=== PATIENT | male | born 1930 | race Caucasian/White ===

== ENCOUNTER 2018-02-22 18:42 | Inpatient (IN) | payer MEDICARE, OTHER ==
[~2018-02-22] VITALS: Ht 167.6 cm; Wt 73.5 kg
[2018-02-22] MEDS ORDERED: MAGNESIUM HYDROXIDE 2,400 MG/30 ML ORAL.SUSP. PO PRN (21:00)
[2018-02-22] MEDS ORDERED: MAG HYDROX/AL HYDROX/SIMETH 30 ML ORAL.SUSP PO PRN (21:00)
[2018-02-22] MEDS ORDERED: METHYL SALICYLATE/MENTHOL TOPICAL OINTMENT 29GM TUBE. TP PRN (21:00)
[2018-02-22] MEDS ORDERED: DONE10TA61 PO (21:06)
[2018-02-22 21:31] LABS: BILIRUBIN,URINE NEG (NEG); CLARITY,URINE CLEAR; COLOR,URINE YELLOW; GLUCOSE,URINE NEG (NEG)
[2018-02-22 21:32] LABS: BACTERIA,URINE 0 /HPF (0-FEW); NITRITE,URINE NEG (NEG); SQUAMOUS EPITHELIAL CELL,UR OCC /LPF; UROBILINOGEN,URINE 0.2 mg/dL (0.2 mg/dL); WBC,URINE RARE /HPF (0-4)
[2018-02-22 21:44] LABS: BASO % 1 % (0-3); EOS # 0.2 x10^3/uL (0.0-0.7); EOS % 4 % (0-3); HEMATOCRIT 40.1 % (39.0-53.0); HEMOGLOBIN 13.5 g/dL (13.0-17.5); LYMPH # 1.6 x10^3/uL (1.0-4.8); LYMPH % 24 % (24-48); MEAN CORPUSCULAR HEMOGLOBIN 31 pg (25-35); MEAN CORPUSCULAR HGB CONC 34 g/dL (31-37); MEAN CORPUSCULAR VOLUME 91 fL (79-100); MONO # 0.7 x10^3/uL (0.0-1.1); MONO % 11 % (0-9); NEUT % 61 % (31-73); PLATELET COUNT 254 x10^3/uL (140-400); RED BLOOD COUNT 4.39 x10^6/uL (4.30-5.70); RED CELL DISTRIBUTION WIDTH 14.2 % (11.5-14.5); WHITE BLOOD COUNT 6.5 x10^3/uL (4.0-11.0)
[2018-02-22 21:57] LABS: ALBUMIN 3.7 g/dL (3.4-5.0); ALBUMIN/GLOBULIN RATIO 0.9 (1.0-1.7); CALCIUM 8.9 mg/dL (8.5-10.1); CREATININE 0.9 mg/dL (0.7-1.3); GFR 79.6; MAGNESIUM 2.2 mg/dL (1.8-2.4); POTASSIUM 3.9 mmol/L (3.5-5.1); TOTAL BILIRUBIN 0.6 mg/dL (0.2-1.0); TOTAL PROTEIN 7.7 g/dL (6.4-8.2)
--- NOTE | 2018-02-22 22:23 | PDOC ---
Exam Note: Willie Note: Please also refer to the separate dictated note~for this date of service dictated separately.~Patient seen individually. Discussed the patient with Nursing staff reviewed the chart.~Reviewed interim history and current functioning. Reviewed vital signs,~Labs/ Radiology~and current medications noted below. Continue current treatment with the changes noted in the dictated addendum note Assessment: Labs: Laboratory Tests Test 02/22/18 21:00 02/22/18 21:35 Urine Collection Type Unknown Urine Color Yellow Urine Clarity Clear Urine pH 5.5 Urine Specific [place] 1.015 Urine Protein Neg (NEG-TRACE) Urine Glucose (UA) Neg mg/dL (NEG) Urine Ketones (Stick) Neg mg/dL (NEG) Urine Blood Trace (NEG) Urine Nitrite Neg (NEG) Urine Bilirubin Neg (NEG) Urine Urobilinogen Dipstick 0.2 mg/dL (0.2 mg/dL) Urine Leukocyte Esterase Neg (NEG) Urine RBC 1-2 /HPF (0-2) Urine WBC Rare /HPF (0-4) Urine Squamous Epithelial Cells Occ /LPF Urine Bacteria 0 /HPF (0-FEW) White Blood Count 6.5 x10^3/uL (4.0-11.0) Red Blood Count 4.39 x10^6/uL (4.30-5.70) Hemoglobin 13.5 g/dL (13.0-17.5) Hematocrit 40.1 % (39.0-53.0) Mean Corpuscular Volume 91 fL (79-100) Mean Corpuscular Hemoglobin 31 pg (25-35) Mean Corpuscular Hemoglobin Concent 34 g/dL (31-37) Red Cell Distribution Width 14.2 % (11.5-14.5) Platelet Count 254 x10^3/uL (140-400) Neutrophils (%) (Auto) 61 % (31-73) Lymphocytes (%) (Auto) 24 % (24-48) Monocytes (%) (Auto) 11 % (0-9) H Eosinophils (%) (Auto) 4 % (0-3) H Basophils (%) (Auto) 1 % (0-3) Neutrophils # (Auto) 4.0 x10^3uL (1.8-7.7) Lymphocytes # (Auto) 1.6 x10^3/uL (1.0-4.8) Monocytes # (Auto) 0.7 x10^3/uL (0.0-1.1) Eosinophils # (Auto) 0.2 x10^3/uL (0.0-0.7) Basophils # (Auto) 0.0 x10^3/uL (0.0-0.2) Sodium Level 132 mmol/L (136-145) L Potassium Level 3.9 mmol/L (3.5-5.1) Chloride Level 98 mmol/L (98-107) Carbon Dioxide Level 25 mmol/L (21-32) Anion Gap 9 (6-14) Blood Urea Nitrogen 19 mg/dL (8-26) Creatinine 0.9 mg/dL (0.7-1.3) Estimated GFR (Cockcroft-Gault) 79.6 BUN/Creatinine Ratio 21 (6-20) H Glucose Level 97 mg/dL (70-99) Calcium Level 8.9 mg/dL (8.5-10.1) Magnesium Level 2.2 mg/dL (1.8-2.4) Total Bilirubin 0.6 mg/dL (0.2-1.0) Aspartate Amino Transferase (AST) 18 U/L (15-37) Alanine Aminotransferase (ALT) 19 U/L (16-63) Alkaline Phosphatase 63 U/L (46-116) Total Protein 7.7 g/dL (6.4-8.2) Albumin 3.7 g/dL (3.4-5.0) Albumin/Globulin Ratio 0.9 (1.0-1.7) L Current Medications: Meds: Current Medications Acetaminophen (Tylenol) 650 mg PRN Q6HRS PRN PO PAIN / TEMP; Start 02/22/18 at 21:00 Multi-Ingredient Ointment (Analgesic [place]) 1 vilma PRN QID PRN TP MUSCLE PAIN; Start 02/22/18 at 21:00 Al Hydroxide/Mg Hydroxide (Mylanta Plus Xs) 15 ml PRN AFTMEALHC PRN PO DYSPEPSIA; Start 02/22/18 at 21:00 Magnesium Hydroxide (Milk Of Magnesia) 2,400 mg PRN QHS PRN PO CONSTIPATION; Start 02/22/18 at 21:00 Donepezil HCl (Aricept) 10 mg QHS PO ; Start 02/22/18 at 22:30 Active Scripts Active Reported Aricept (Donepezil Hcl) 10 Mg Tablet 10 Mg PO HS I have reviewed the current psychotropics carefully including drug interactions. Risk benefit ratio favors no change other than as noted in my dictated progress note. RUCHI WHITT MD Feb 22, 2018 22:23
[2018-02-22] MEDS: DONEPEZIL HCL 10 MG TABLET PO SCH (22:28)
[2018-02-22] MEDS: ACETAMINOPHEN 325 MG TABLET PO PRN (23:46)
[2018-02-23 01:56] VITALS: BP 149/84
[2018-02-23 06:26] VITALS: BP 132/71
[2018-02-23 10:52] LABS: THYROID STIM HORMONE (TSH) 4.186 uIU/mL (0.358-3.740)
--- NOTE | 2018-02-23 11:46 | RAD ---
CT scan of the head without contrast 02/22/2018 Clinical History: Mental status changes. Technique: Unenhanced, contiguous, 5 mm axial sections were obtained through the head. One or more of the following individualized dose reduction techniques were utilized for this study: 1. Automated exposure control. 2. Adjustment of the mA and/or kV according to patient size. 3. Use of iterative reconstruction technique. Findings: No previous imaging studies are available for comparison. There is generalized parenchymal atrophy. Areas of decreased attenuation are seen within the periventricular and subcortical white matter of both cerebral hemispheres consistent with areas of small vessel ischemic disease. No acute parenchymal abnormality is seen. No extra-axial fluid collection is noted. No skull fracture is seen. Mild to moderate mucosal thickening in seen scattered throughout the ethmoid air cells. Impression: No acute intracranial abnormality is seen. Electronically signed by: Cristopher Hancock MD (02/23/2018 11:42 AM) [facility]
[2018-02-23 15:08] LABS: HEMOGLOBIN A1C 5.6 % (4.8-5.6); THYROXINE 6.6 ug/dL (4.5-12.0)
[2018-02-23] MEDS: CHOLECALCIFEROL (VITAMIN D3) 50,000 UNIT CAPSULE PO SCH ×2 (15:30→17:32)
[2018-02-23 16:06] VITALS: BP 130/82
[2018-02-23] MEDS: DONEPEZIL HCL 10 MG TABLET PO SCH (20:10)
[2018-02-23] MEDS: traZODone 50 MG TABLET. PO SCH (20:22)
[2018-02-23] MEDS ORDERED: traZODone 50 MG TABLET. PO PRN (20:30)
--- NOTE | 2018-02-23 20:40 | HP ---
ADMIT DATE: 02/23/2018 PSYCHIATRIC ADMISSION HISTORY/EVALUATION This note covers elements not covered in my initial note 02/23/2018. IDENTIFYING DATA: The patient is an 87-year-old male from [facility] in [place], [place] after the police were called to his home and the patient was brought to the hospital on account of increasing confusion. Reportedly, the patient had bought a new house, but forgot he done this, became agitated when the movers came. He was accusing people of taking advantage of him. He has had a fairly traumatic incident in October of this year when he lost his son and he has been more depressed, delusional, confused and agitated since then, but the recent move has markedly exacerbated this. He has also been going for walks and getting lost. Behaviors have been deemed unmanageable, dangerous in the home. He was brought to the Emergency Room, evaluated, and then referred for inpatient psychiatric stabilization. CHIEF COMPLAINT: "Where is the elevator. I need to go to the tenth floor." The patient was anxious, restless, walking up and down the hallway and I followed him around trying to help him settle down with some limited response. HISTORY OF PRESENT ILLNESS: The patient has a history of dementia, Alzheimer's vascular type. He has been living at home with his and family, bought a new home, which worsened his confusion, paranoia. He has had sleep and appetite changes. No active suicidal or homicidal ideation other than the above marked disruptive behavior secondary to paranoia, confusion. No history of bipolar disorder. The patient had also been increasingly agitated at home, verbally aggressive with the and family. PAST PSYCHIATRIC HISTORY: As above. MEDICAL HISTORY: Vitamin D deficiency. ALLERGIES: PENICILLIN, SULFA. CODE STATUS: He is a full code. FAMILY HISTORY: Noncontributory. SOCIAL HISTORY: No history of alcohol, drug abuse, physical, sexual or elder abuse. He is not known to be a perpetrator. REACTION TO HOSPITALIZATION: The patient oblivious of this. ASSETS: Supportive family. REVIEW OF SYSTEMS: No CV, , pulmonary, eye, ENT system symptoms on review. Reliability poor. MENTAL STATUS EXAMINATION: Oriented to himself. Insight, judgment, recent and remote memory, attention, concentration, fund of knowledge poor, consistent with his diagnosis. IMPRESSION: Major neurocognitive disorder, Alzheimer, vascular with depression, delusion, behavioral disturbance; anxiety disorder, unspecified; impulse control disorder, unspecified. Rest as above. PLAN: Admit to Geropsychiatry Unit at [facility]. I will see the patient daily individually from a psychiatric standpoint, medical followup per Dr. Burr/Dr Plascencia. Continue the patient on his current psychotropics. We may add Zyprexa 2.5 mg q.2 hours p.r.n. psychosis, agitation. Make further changes as clinically indicated and I will see him daily individually from a psychiatric standpoint. MAN Magy WHITT MD DR: SHREYA/selina JOB#: [id number] / [id number]
--- NOTE | 2018-02-23 22:26 | PDOC ---
Exam Note: Willie Note: Please also refer to the separate dictated note~for this date of service dictated separately.~Patient seen individually. Discussed the patient with Nursing staff reviewed the chart.~Reviewed interim history and current functioning. Reviewed vital signs,~Labs/ Radiology~and current medications noted below. Continue current treatment with the changes noted in the dictated addendum note Assessment: Vital Signs: Vital Signs Date Time Temp Pulse Resp B/P (MAP) Pulse Ox O2 Delivery O2 Flow Rate FiO2 02/23/18 16:06 97.6 72 20 130/82 (98) 98 Room Air I&O Intake and Output 02/23/18 07:01 Intake Total 120 ml Balance 120 ml Intake Oral 120 ml Current Medications: Meds: Current Medications Acetaminophen (Tylenol) 650 mg PRN Q6HRS PRN PO PAIN / TEMP Last administered on 02/22/18at 23:46; Start 02/22/18 at 21:00 Multi-Ingredient Ointment (Analgesic [place]) 1 vilma PRN QID PRN TP MUSCLE PAIN; Start 02/22/18 at 21:00 Al Hydroxide/Mg Hydroxide (Mylanta Plus Xs) 15 ml PRN AFTMEALHC PRN PO DYSPEPSIA; Start 02/22/18 at 21:00 Magnesium Hydroxide (Milk Of Magnesia) 2,400 mg PRN QHS PRN PO CONSTIPATION; Start 02/22/18 at 21:00 Donepezil HCl (Aricept) 10 mg QHS PO Last administered on 02/23/18at 20:10; Start 02/22/18 at 22:30 Vitamin D (Vitamin D3) 50,000 unit WEEKLY PO Last administered on 02/23/18at 17: 32; Start 02/23/18 at 15:30 Olanzapine (ZyPREXA ZYDIS) 2.5 mg PRN Q2HR PRN PO PSYCHOSIS Last administered on 02/23/18at 20:22; Start 02/23/18 at 20:30 Trazodone HCl (Desyrel) 50 mg QHS PO Last administered on 02/23/18at 20:22; Start 02/23/18 at 21:00 Trazodone HCl (Desyrel) 50 mg PRN QHS PRN PO IF REPEAT DOSE NEEDED; Start 02/23 at 20:30 Active Scripts Active Reported Aricept (Donepezil Hcl) 10 Mg Tablet 10 Mg PO HS I have reviewed the current psychotropics carefully including drug interactions. Risk benefit ratio favors no change other than as noted in my dictated progress note. Diagnosis: Problems: (1) Anxiety disorder (2) Dementia in Alzheimer's disease with delusions (3) Dementia in Alzheimer's disease with depression (4) Dementia, vascular, with delusions (5) Dementia, vascular, with depression (6) Impulse control disorder RUCHI WHITT MD Feb 23, 2018 22:25
[2018-02-24 06:02] VITALS: BP 109/62
--- NOTE | 2018-02-24 12:15 | CONS ---
DATE OF CONSULTATION: 02/23/2018 REASON FOR CONSULTATION: Medical management. HISTORY OF PRESENT ILLNESS: The patient is an 87-year-old male patient, who was admitted to this unit on account of increased agitation at home, verbally aggressive with and family. The patient and his both at new home, but when the movers came the patient became extremely agitated, does not remember buying a new home and refused to get the movers take any belongings. The police had to be called in. The patient was evaluated in the Emergency Room of [facility] with increasing confusion. He goes out on walks and gets lost, all this in a background of major neurocognitive disorder. PAST PSYCHIATRIC HISTORY: Significant for dementia, major neurocognitive disorder and behavioral disorder. PAST MEDICAL HISTORY: Unremarkable. PAST SURGICAL HISTORY: Unobtainable. FAMILY HISTORY: Unobtainable. SOCIAL HISTORY: He lives with his . Apparently, he does not smoke, drink alcohol or use recreational drugs. He said he quit smoking about 20 years ago, used to work in the railroad. ALLERGIES: He is allergic to PENICILLIN and SULFA DRUGS. MEDICATIONS: He is currently on Aricept 10 mg at bedtime. REVIEW OF SYSTEMS: As per history of present illness. PHYSICAL EXAMINATION GENERAL: When I examined him, the patient was walking without assistance or assistive devices. There was no pallor, jaundice or cyanosis. No lymphadenopathy, no thyromegaly. No jugular venous distention. No limb edema. VITAL SIGNS: His heart rate was 60, blood pressure was 132/71, temperature was 97.9, respiratory rate 20, and oxygen saturation was 98% on room air. HEAD, EYES, EARS, NOSE AND THROAT: Showed normocephalic, atraumatic. NECK: Supple. HEART: Showed normal first and second heart sounds. No gallop, rub or murmur. CHEST: Clear to auscultation. No crepitation or rhonchi. ABDOMEN: Distended, soft, nontender. No guarding or rigidity. No organomegaly. All hernial orifice intact. Bowel sounds normal. NEUROLOGIC: He was awake, alert, responding. At times he seemed to be very confused. All his cranial nerves are intact. EXTREMITIES: He moves extremities without difficulty, ambulates without assistance or assistive devices. LABORATORY DATA: Showed a white cell count of 6500, hemoglobin 13.5, hematocrit 40, MCV 91, and platelet count 254,000 with normal manual differential. His chemistry showed serum sodium of 132, potassium 3.9, chloride 98, bicarbonate 25, anion gap of 9, BUN 19, creatinine 0.9, estimated GFR was 79 mL per minute, glucose 97, calcium was 8.9, magnesium was 2.2. Total bilirubin, AST, ALT, alkaline phosphatase were normal. Total protein was 7.7, albumin was 3.7. His urinalysis showed the urine was yellow, clear with a pH of 5.5, specific gravity of 1.015. The urine was negative for protein, glucose, ketones. There was a trace of blood, negative for nitrites, bilirubin and leukocyte esterase. There is 1-2 rbc's, 0 wbc, and no bacteria. His troponin with pallidum antibody was nonreactive. His CT scan of the head showed that there is generalized parenchymal atrophy, areas of decreased attenuation are seen within the periventricular and subcortical white matter of both cerebral hemispheres consistent with areas of small vessel ischemic disease, no acute parenchymal abnormalities are seen. No extraaxial fluid collection is noted. No skull fracture is seen. Mild to moderate mucosal thickening is seen. Scattered throughout the ethmoid air cells. His hemoglobin A1c was 5.6. Serum iron was 650, TIBC was 300 and percent saturation was 17, triglycerides were 84%, total cholesterol was 237, LDL was 55, VLDL was 15, non-HDL was 171, HDL cholesterol was 66 and ratio was 3. His vitamin B12 was 279 pg/mL. His 25-hydroxy vitamin D3 was 24.4 and TSH slightly elevated; however, his total T4 and total T3 were normal. IMPRESSION: In summary, this is an 87-year-old male patient, who was admitted on the account of increased agitation at home, verbally aggressive with and family. He and his both at new home, but when movers came in he became very agitated, did not remember why getting home and refused to movers take any belonging. The police has to be called in and he was taken to the Emergency Room and was evaluated at the [facility]. All this in the background of major neurocognitive disorder, here for inpatient psychiatric stabilization. Medically, he has vitamin D deficiency, borderline elevated TSH. He has compensated hypothyroidism. However, his total T4 and total T3 were normal. He has also low to borderline vitamin B12 deficiency. PLAN: My plan is to replenish his vitamin D for now and he probably needs to be followed closely and he might eventually require vitamin B12 supplementation. Thank you, Dr. Burkett for allowing me to participate in the care of this patient. JEAN MARIE RAY MD DR: ERICK/selina JOB#: [id number] / [id number]
[2018-02-24 15:44] VITALS: BP 118/64
[2018-02-24] MEDS: DONEPEZIL HCL 10 MG TABLET PO SCH (19:50)
[2018-02-24] MEDS: traZODone 50 MG TABLET. PO SCH (19:50)
--- NOTE | 2018-02-24 20:57 | PDOC ---
Exam Note: Willie Note: Please also refer to the separate dictated note~for this date of service dictated separately.~Patient seen individually. Discussed the patient with Nursing staff reviewed the chart.~Reviewed interim history and current functioning. Reviewed vital signs,~Labs/ Radiology~and current medications noted below. Continue current treatment with the changes noted in the dictated addendum note Assessment: Vital Signs: Vital Signs Date Time Temp Pulse Resp B/P (MAP) Pulse Ox O2 Delivery O2 Flow Rate FiO2 02/24/18 15:44 97.7 60 17 118/64 (82) 95 02/23/18 16:06 Room Air I&O Intake and Output 02/24/18 07:01 Intake Total 485 ml Balance 485 ml Intake Oral 485 ml Current Medications: Meds: Current Medications Acetaminophen (Tylenol) 650 mg PRN Q6HRS PRN PO PAIN / TEMP Last administered on 02/22/18at 23:46; Start 02/22/18 at 21:00 Multi-Ingredient Ointment (Analgesic [place]) 1 vilma PRN QID PRN TP MUSCLE PAIN; Start 02/22/18 at 21:00 Al Hydroxide/Mg Hydroxide (Mylanta Plus Xs) 15 ml PRN AFTMEALHC PRN PO DYSPEPSIA; Start 02/22/18 at 21:00 Magnesium Hydroxide (Milk Of Magnesia) 2,400 mg PRN QHS PRN PO CONSTIPATION; Start 02/22/18 at 21:00 Donepezil HCl (Aricept) 10 mg QHS PO Last administered on 02/24/18at 19:50; Start 02/22/18 at 22:30 Vitamin D (Vitamin D3) 50,000 unit WEEKLY PO Last administered on 02/23/18at 17: 32; Start 02/23/18 at 15:30 Olanzapine (ZyPREXA ZYDIS) 2.5 mg PRN Q2HR PRN PO PSYCHOSIS Last administered on 02/24/18 19:51; Start 02/23/18 at 20:30 Trazodone HCl (Desyrel) 50 mg QHS PO Last administered on 02/24/18at 19:50; Start 02/23/18 at 21:00 Trazodone HCl (Desyrel) 50 mg PRN QHS PRN PO IF REPEAT DOSE NEEDED Last administered on 02/23/18at 22:47; Start 02/23/18 at 20:30 Active Scripts Active Reported Aricept (Donepezil Hcl) 10 Mg Tablet 10 Mg PO HS I have reviewed the current psychotropics carefully including drug interactions. Risk benefit ratio favors no change other than as noted in my dictated progress note. Diagnosis: Problems: (1) Anxiety disorder (2) Dementia in Alzheimer's disease with delusions (3) Dementia in Alzheimer's disease with depression (4) Dementia, vascular, with delusions (5) Dementia, vascular, with depression (6) Impulse control disorder RUCHI WHITT MD Feb 24, 2018 20:57
[2018-02-25 06:19] VITALS: BP 124/74
--- NOTE | 2018-02-25 12:20 | PN ---
DATE: 02/24/2018 PSYCHIATRIC PROGRESS NOTE This is a late entry, date of service 02/24/2018, covers elements not covered in my initial note. SUBJECTIVE: I met with the patient the evening of 02/24/2018. The patient remains quite confused, disorganized, but during the day on 02/24/2018 he is little less agitated. He is compliant with his medications. REVIEW OF SYSTEMS: No CV, , pulmonary, eye, ENT system symptoms on review, remains somewhat withdrawn. MENTAL STATUS EXAM: Oriented to himself. Insight, judgment, recent and remote memory, attention, concentration, fund of knowledge poor, consistent with his diagnoses. Speech, low in rate and rhythm, low in volume. Eye contact is poor. LABORATORY DATA: Reviewed. IMPRESSION: Major neurocognitive disorder, Alzheimer, vascular with delusion, depression, behavioral disturbance. Rest unchanged. PLAN: Continue psychotropics from my initial note. These include Aricept, Zyprexa p.r.n., trazodone p.r.n. and we will consider adding Zoloft as an antidepressant antianxiety agent. RUCHI WHITT MD DR: SHREYA/selina JOB#: [id number] / [id number]
[2018-02-25 16:14] VITALS: BP 124/76
[2018-02-25] MEDS: DONEPEZIL HCL 10 MG TABLET PO SCH (19:45)
[2018-02-25] MEDS: traZODone 50 MG TABLET. PO SCH (19:45)
--- NOTE | 2018-02-25 20:58 | PDOC ---
Exam Note: Willie Note: Please also refer to the separate dictated note~for this date of service dictated separately.~Patient seen individually. Discussed the patient with Nursing staff reviewed the chart.~Reviewed interim history and current functioning. Reviewed vital signs,~Labs/ Radiology~and current medications noted below. Continue current treatment with the changes noted in the dictated addendum note Assessment: Vital Signs: Vital Signs Date Time Temp Pulse Resp B/P (MAP) Pulse Ox O2 Delivery O2 Flow Rate FiO2 02/25/18 16:14 97.4 74 20 124/76 (92) 96 Room Air I&O Intake and Output 02/25/18 07:01 Intake Total 1320 ml Balance 1320 ml Intake Oral 1320 ml Current Medications: Meds: Current Medications Acetaminophen (Tylenol) 650 mg PRN Q6HRS PRN PO PAIN / TEMP Last administered on 02/22/18at 23:46; Start 02/22/18 at 21:00 Multi-Ingredient Ointment (Analgesic [place]) 1 vilma PRN QID PRN TP MUSCLE PAIN; Start 02/22/18 at 21:00 Al Hydroxide/Mg Hydroxide (Mylanta Plus Xs) 15 ml PRN AFTMEALHC PRN PO DYSPEPSIA; Start 02/22/18 at 21:00 Magnesium Hydroxide (Milk Of Magnesia) 2,400 mg PRN QHS PRN PO CONSTIPATION; Start 02/22/18 at 21:00 Donepezil HCl (Aricept) 10 mg QHS PO Last administered on 02/25/18at 19:45; Start 02/22/18 at 22:30 Vitamin D (Vitamin D3) 50,000 unit WEEKLY PO Last administered on 02/23/18at 17: 32; Start 02/23/18 at 15:30 Olanzapine (ZyPREXA ZYDIS) 2.5 mg PRN Q2HR PRN PO PSYCHOSIS Last administered on 02/24/18 19:51; Start 02/23/18 at 20:30 Trazodone HCl (Desyrel) 50 mg QHS PO Last administered on 02/25/18at 19:45; Start 02/23/18 at 21:00 Trazodone HCl (Desyrel) 50 mg PRN QHS PRN PO IF REPEAT DOSE NEEDED Last administered on 02/23/18at 22:47; Start 02/23/18 at 20:30 Sertraline HCl (Zoloft) 25 mg DAILY PO ; Start 02/26/18 at 09:00; Stop 02/28/18 at 11:00 Sertraline HCl (Zoloft) 50 mg DAILY PO ; Start 03/01/18 at 09:00 Active Scripts Active Reported Aricept (Donepezil Hcl) 10 Mg Tablet 10 Mg PO HS I have reviewed the current psychotropics carefully including drug interactions. Risk benefit ratio favors no change other than as noted in my dictated progress note. Diagnosis: Problems: (1) Anxiety disorder (2) Dementia in Alzheimer's disease with delusions (3) Dementia in Alzheimer's disease with depression (4) Dementia, vascular, with delusions (5) Dementia, vascular, with depression (6) Impulse control disorder RUCHI WHITT MD Feb 25, 2018 20:58
[2018-02-26 06:06] VITALS: BP 132/70
[2018-02-26] MEDS: SERTRALINE 25 MG TABLET. PO SCH (08:45)
[2018-02-26 15:50] VITALS: BP 148/76
[2018-02-26] MEDS: DONEPEZIL HCL 10 MG TABLET PO SCH (19:46)
[2018-02-26] MEDS: traZODone 50 MG TABLET. PO SCH (19:46)
--- NOTE | 2018-02-26 20:53 | PN ---
DATE: 02/25/2018 PSYCHIATRIC PROGRESS NOTE This is a late entry 02/25/2018, covers elements not covered in my initial note. SUBJECTIVE: I met with the patient in the evening. The patient slept 5 hours previous evening, did well the previous night, somewhat resistive to shower, but took it later. He has been wandering, anxious, somewhat dysphoric, confused. REVIEW OF SYSTEMS: No CV, , pulmonary, eye, ENT system symptoms on review. Reliability poor. MENTAL STATUS EXAM: Oriented to himself. Insight, judgment, recent and remote memory, attention, concentration, fund of knowledge poor, consistent with his diagnoses mentioned in my initial note. He had removed his partial denture for his supper, almost forgot to pick it up from the table till I reminded him. PLAN: Start Zoloft 25 mg a day for 3 days, then 50 mg a day for his mood and anxiety symptoms. Continue Aricept together with trazodone p.r.n., Zyprexa p.r.n. MAN Magy WHITT MD DR: SHREYA/selina JOB#: [id number] / [id number]
--- NOTE | 2018-02-26 20:58 | PDOC ---
Exam Note: Willie Note: Please also refer to the separate dictated note~for this date of service dictated separately.~Patient seen individually. Discussed the patient with Nursing staff reviewed the chart.~Reviewed interim history and current functioning. Reviewed vital signs,~Labs/ Radiology~and current medications noted below. Continue current treatment with the changes noted in the dictated addendum note Assessment: Vital Signs: Vital Signs Date Time Temp Pulse Resp B/P (MAP) Pulse Ox O2 Delivery O2 Flow Rate FiO2 02/26/18 15:50 97.6 65 22 148/76 (100) 100 02/25/18 16:14 Room Air I&O Intake and Output 02/26/18 07:00 Intake Total 840 ml Balance 840 ml Intake Oral 840 ml Current Medications: Meds: Current Medications Acetaminophen (Tylenol) 650 mg PRN Q6HRS PRN PO PAIN / TEMP Last administered on 02/22/18at 23:46; Start 02/22/18 at 21:00 Multi-Ingredient Ointment (Analgesic [place]) 1 vilma PRN QID PRN TP MUSCLE PAIN; Start 02/22/18 at 21:00 Al Hydroxide/Mg Hydroxide (Mylanta Plus Xs) 15 ml PRN AFTMEALHC PRN PO DYSPEPSIA; Start 02/22/18 at 21:00 Magnesium Hydroxide (Milk Of Magnesia) 2,400 mg PRN QHS PRN PO CONSTIPATION; Start 02/22/18 at 21:00 Donepezil HCl (Aricept) 10 mg QHS PO Last administered on 02/26/18at 19:46; Start 02/22/18 at 22:30 Vitamin D (Vitamin D3) 50,000 unit WEEKLY PO Last administered on 02/23/18at 17: 32; Start 02/23/18 at 15:30 Olanzapine (ZyPREXA ZYDIS) 2.5 mg PRN Q2HR PRN PO PSYCHOSIS Last administered on 02/24/18at 19:51; Start 02/23/18 at 20:30 Trazodone HCl (Desyrel) 50 mg QHS PO Last administered on 02/26/18at 19:46; Start 02/23/18 at 21:00 Trazodone HCl (Desyrel) 50 mg PRN QHS PRN PO IF REPEAT DOSE NEEDED Last administered on 02/23/18at 22:47; Start 02/23/18 at 20:30 Sertraline HCl (Zoloft) 25 mg DAILY PO Last administered on 02/26/18at 08:45; Start 02/26/18 at 09:00; Stop 02/28/18 at 11:00 Sertraline HCl (Zoloft) 50 mg DAILY PO ; Start 03/01/18 at 09:00; Stop 03/01/18 at 10:00 Sertraline HCl (Zoloft) 75 mg DAILY PO ; Start 03/02/18 at 09:00 Active Scripts Active Reported Aricept (Donepezil Hcl) 10 Mg Tablet 10 Mg PO HS I have reviewed the current psychotropics carefully including drug interactions. Risk benefit ratio favors no change other than as noted in my dictated progress note. Diagnosis: Problems: (1) Anxiety disorder (2) Dementia in Alzheimer's disease with delusions (3) Dementia in Alzheimer's disease with depression (4) Dementia, vascular, with delusions (5) Dementia, vascular, with depression (6) Impulse control disorder RUCHI WHITT MD Feb 26, 2018 20:58
[2018-02-27 06:00] VITALS: BP 123/72
[2018-02-27] MEDS: SERTRALINE 25 MG TABLET. PO SCH (08:48)
--- NOTE | 2018-02-27 13:30 | PN ---
DATE: 02/26/2018 PSYCHIATRIC PROGRESS NOTE This is a late entry 02/26/2018 covers elements not covered in my initial note. SUBJECTIVE: I met with the patient in the evening. The patient slept 6-1/2 hours. He has been constantly looking for the elevator, asking me repeatedly as I met with him to find the elevator for him because he had ordered a 1 bedroom apartment and he has been given a 2 bedroom apartment here. In fact, there are two beds in his room and he remains quite confused about this. Remains quite anxious. REVIEW OF SYSTEMS: No CV, , pulmonary, eye, ENT system symptoms on review. Reliability poor. MENTAL STATUS EXAM: Oriented to himself. Insight, judgment, recent memory is impaired, remote is better. Language function intact, attention span short. Mood and affect somewhat dysphoric, anxious, obsessive. LABORATORY DATA: Reviewed. IMPRESSION: Unchanged from initial note. PLAN: The patient is on Zoloft 50 mg a day. We will increase it to 75 mg a day after he has been on the 50 for 3 days. Continue trazodone p.r.n., Aricept along with Zyprexa p.r.n. RUCHI WHITT MD DR: SHREYA/selina JOB#: [id number] / [id number]
[2018-02-27 17:04] VITALS: BP 125/74
[2018-02-27] MEDS: DONEPEZIL HCL 10 MG TABLET PO SCH (19:59)
[2018-02-27] MEDS: traZODone 50 MG TABLET. PO SCH (19:59)
--- NOTE | 2018-02-27 20:47 | PDOC ---
Exam Note: Willie Note: Please also refer to the separate dictated note~for this date of service dictated separately.~Patient seen individually. Discussed the patient with Nursing staff reviewed the chart.~Reviewed interim history and current functioning. Reviewed vital signs,~Labs/ Radiology~and current medications noted below. Continue current treatment with the changes noted in the dictated addendum note Assessment: Vital Signs: Vital Signs Date Time Temp Pulse Resp B/P (MAP) Pulse Ox O2 Delivery O2 Flow Rate FiO2 02/27/18 17:04 97.8 73 19 125/74 (91) 96 02/25/18 16:14 Room Air I&O Intake and Output 02/27/18 07:00 Intake Total 1200 ml Balance 1200 ml Intake Oral 1200 ml Current Medications: Meds: Current Medications Acetaminophen (Tylenol) 650 mg PRN Q6HRS PRN PO PAIN / TEMP Last administered on 02/22/18at 23:46; Start 02/22/18 at 21:00 Multi-Ingredient Ointment (Analgesic [place]) 1 vilma PRN QID PRN TP MUSCLE PAIN; Start 02/22/18 at 21:00 Al Hydroxide/Mg Hydroxide (Mylanta Plus Xs) 15 ml PRN AFTMEALHC PRN PO DYSPEPSIA; Start 02/22/18 at 21:00 Magnesium Hydroxide (Milk Of Magnesia) 2,400 mg PRN QHS PRN PO CONSTIPATION; Start 02/22/18 at 21:00 Donepezil HCl (Aricept) 10 mg QHS PO Last administered on 02/27/18at 19:59; Start 02/22/18 at 22:30 Vitamin D (Vitamin D3) 50,000 unit WEEKLY PO Last administered on 02/23/18at 17: 32; Start 02/23/18 at 15:30 Olanzapine (ZyPREXA ZYDIS) 2.5 mg PRN Q2HR PRN PO PSYCHOSIS Last administered on 02/24/18 19:51; Start 02/23/18 at 20:30 Trazodone HCl (Desyrel) 50 mg QHS PO Last administered on 02/27/18at 19:59; Start 02/23/18 at 21:00 Trazodone HCl (Desyrel) 50 mg PRN QHS PRN PO IF REPEAT DOSE NEEDED Last administered on 02/23/18at 22:47; Start 02/23/18 at 20:30 Sertraline HCl (Zoloft) 25 mg DAILY PO Last administered on 02/27/18at 08:48; Start 02/26/18 at 09:00; Stop 02/28/18 at 11:00 Sertraline HCl (Zoloft) 50 mg DAILY PO ; Start 03/01/18 at 09:00; Stop 03/01/18 at 10:00 Sertraline HCl (Zoloft) 75 mg DAILY PO ; Start 03/02/18 at 09:00 Active Scripts Active Reported Aricept (Donepezil Hcl) 10 Mg Tablet 10 Mg PO HS I have reviewed the current psychotropics carefully including drug interactions. Risk benefit ratio favors no change other than as noted in my dictated progress note. Diagnosis: Problems: (1) Anxiety disorder (2) Dementia in Alzheimer's disease with delusions (3) Dementia in Alzheimer's disease with depression (4) Dementia, vascular, with delusions (5) Dementia, vascular, with depression (6) Impulse control disorder RUCHI WHITT MD Feb 27, 2018 20:47
[2018-02-28 05:50] VITALS: BP 120/80
[2018-02-28] MEDS: SERTRALINE 25 MG TABLET. PO SCH (08:30)
[2018-02-28 16:02] VITALS: BP 160/85
--- NOTE | 2018-02-28 19:07 | PN ---
DATE: 02/27/2018 This is a late entry 02/27/2018 covers the elements not covered in my initial note. SUBJECTIVE: The patient was staffed at a treatment team meeting with the entire team in the morning and patient's Ethel, daughters Do and Ne, and son Sandeep, attended the treatment team meeting. We had a lengthy discussion about the patient's diagnosis, circumstances prompting admission, his progressive short term memory deficits over the past several years noted by the family. Appetite 80%, sleeping 5-3/4 hours. Always was looking for the elevator, restless, anxious, compliant with medications. He is looking to find a flight and get out of here. REVIEW OF SYSTEMS: No CV, , pulmonary, eye, ENT system symptoms on review. MENTAL STATUS EXAM: Oriented to himself. Insight, judgment, recent memory is impaired, remote is better. Language function intact, attention span short. Mood and affect somewhat anxious, labile, restless. LABORATORY DATA: Reviewed. IMPRESSION: Unchanged from initial note. PLAN: Continue psychotropics mentioned in my initial note. Zoloft will be increased to 75 mg a day, after 3 days on 50 mg. MAN Magy WHITT MD DR: SHREYA/selina JOB#: [id number] / [id number]
[2018-02-28] MEDS: traZODone 50 MG TABLET. PO SCH (19:41)
[2018-02-28] MEDS: DONEPEZIL HCL 10 MG TABLET PO SCH (19:41)
--- NOTE | 2018-02-28 20:45 | PDOC ---
Exam Note: Willie Note: Please also refer to the separate dictated note~for this date of service dictated separately.~Patient seen individually. Discussed the patient with Nursing staff reviewed the chart.~Reviewed interim history and current functioning. Reviewed vital signs,~Labs/ Radiology~and current medications noted below. Continue current treatment with the changes noted in the dictated addendum note Assessment: Vital Signs: Vital Signs Date Time Temp Pulse Resp B/P (MAP) Pulse Ox O2 Delivery O2 Flow Rate FiO2 02/28/18 16:02 97.8 67 16 160/85 (110) 96 02/25/18 16:14 Room Air I&O Intake and Output 02/28/18 07:00 Intake Total 960 ml Balance 960 ml Intake Oral 960 ml Current Medications: Meds: Current Medications Acetaminophen (Tylenol) 650 mg PRN Q6HRS PRN PO PAIN / TEMP Last administered on 02/22/18at 23:46; Start 02/22/18 at 21:00 Multi-Ingredient Ointment (Analgesic [place]) 1 vilma PRN QID PRN TP MUSCLE PAIN; Start 02/22/18 at 21:00 Al Hydroxide/Mg Hydroxide (Mylanta Plus Xs) 15 ml PRN AFTMEALHC PRN PO DYSPEPSIA; Start 02/22/18 at 21:00 Magnesium Hydroxide (Milk Of Magnesia) 2,400 mg PRN QHS PRN PO CONSTIPATION; Start 02/22/18 at 21:00 Donepezil HCl (Aricept) 10 mg QHS PO Last administered on 02/28/18at 19:41; Start 02/22/18 at 22:30 Vitamin D (Vitamin D3) 50,000 unit WEEKLY PO Last administered on 02/23/18at 17: 32; Start 02/23/18 at 15:30 Olanzapine (ZyPREXA ZYDIS) 2.5 mg PRN Q2HR PRN PO PSYCHOSIS Last administered on 02/24/18 19:51; Start 02/23/18 at 20:30 Trazodone HCl (Desyrel) 50 mg QHS PO Last administered on 02/28/18at 19:41; Start 02/23/18 at 21:00 Trazodone HCl (Desyrel) 50 mg PRN QHS PRN PO IF REPEAT DOSE NEEDED Last administered on 02/23/18at 22:47; Start 02/23/18 at 20:30 Sertraline HCl (Zoloft) 25 mg DAILY PO Last administered on 02/28/18at 08:30; Start 02/26/18 at 09:00; Stop 02/28/18 at 11:00; Status DC Sertraline HCl (Zoloft) 50 mg DAILY PO ; Start 03/01/18 at 09:00; Stop 03/01/18 at 10:00 Sertraline HCl (Zoloft) 75 mg DAILY PO ; Start 03/02/18 at 09:00 Active Scripts Active Reported Aricept (Donepezil Hcl) 10 Mg Tablet 10 Mg PO HS I have reviewed the current psychotropics carefully including drug interactions. Risk benefit ratio favors no change other than as noted in my dictated progress note. Diagnosis: Problems: (1) Anxiety disorder (2) Dementia in Alzheimer's disease with delusions (3) Dementia in Alzheimer's disease with depression (4) Dementia, vascular, with delusions (5) Dementia, vascular, with depression (6) Impulse control disorder RUCHI WHITT MD Feb 28, 2018 20:45
[2018-03-01 05:44] VITALS: BP 109/62
[2018-03-01 06:19] LABS: BASO % 1 % (0-3); EOS # 0.3 x10^3/uL (0.0-0.7); EOS % 6 % (0-3); HEMATOCRIT 39.2 % (39.0-53.0); HEMOGLOBIN 13.4 g/dL (13.0-17.5); LYMPH # 1.9 x10^3/uL (1.0-4.8); LYMPH % 33 % (24-48); MEAN CORPUSCULAR HEMOGLOBIN 31 pg (25-35); MEAN CORPUSCULAR HGB CONC 34 g/dL (31-37); MEAN CORPUSCULAR VOLUME 90 fL (79-100); MONO # 0.6 x10^3/uL (0.0-1.1); MONO % 10 % (0-9); NEUT % 52 % (31-73); PLATELET COUNT 326 x10^3/uL (140-400); RED BLOOD COUNT 4.37 x10^6/uL (4.30-5.70); RED CELL DISTRIBUTION WIDTH 14.1 % (11.5-14.5); WHITE BLOOD COUNT 5.9 x10^3/uL (4.0-11.0)
[2018-03-01 06:35] LABS: ALBUMIN 3.5 g/dL (3.4-5.0); ALBUMIN/GLOBULIN RATIO 0.9 (1.0-1.7); CALCIUM 9.1 mg/dL (8.5-10.1); CREATININE 0.9 mg/dL (0.7-1.3); GFR 79.6; POTASSIUM 4.1 mmol/L (3.5-5.1); TOTAL BILIRUBIN 0.6 mg/dL (0.2-1.0); TOTAL PROTEIN 7.4 g/dL (6.4-8.2)
[2018-03-01] MEDS ORDERED: SERTRALINE 50 MG TABLET. PO SCH (09:00)
[2018-03-01 16:04] VITALS: BP 125/77
--- NOTE | 2018-03-01 18:24 | PN ---
DATE: 02/28/2018 This is a late entry, 02/28/2018, covers the elements not covered in my initial note, 02/28/2018. SUBJECTIVE: I met with the patient in the evening. The patient remains confused, compliant with medications, pleasant. CT head shows no acute changes. We will check a CBC, CMP in the morning. He is more confused in the evening, carried his room sign around him on the unit, the day before. Looking for a flight to go to [facility], angry at his during visits. REVIEW OF SYSTEMS: No CV, , pulmonary, eye, ENT system symptoms on review, as I met with him. Reliability poor. He repeatedly caught me on the rounds, quite disorganized. MENTAL STATUS EXAM: Oriented to himself. Insight, judgment, recent memory is impaired. Language function intact. Attention span short. Mood and affect remain somewhat anxious, labile. LABORATORY DATA: Reviewed. IMPRESSION: Unchanged from initial note. PLAN: Continue current psychotropics. We are increasing the Zoloft. May need to add BuSpar for anxiety. Continue Aricept 10 mg a day, trazodone along with Zyprexa as needed. MAN Magy WHITT MD DR: SHREYA/selina JOB#: [id number] / [id number]
[2018-03-01] MEDS: traZODone 50 MG TABLET. PO SCH (19:27)
[2018-03-01] MEDS: DONEPEZIL HCL 10 MG TABLET PO SCH (19:28)
--- NOTE | 2018-03-01 20:46 | PDOC ---
Exam Note: Willie Note: Please also refer to the separate dictated note~for this date of service dictated separately.~Patient seen individually. Discussed the patient with Nursing staff reviewed the chart.~Reviewed interim history and current functioning. Reviewed vital signs,~Labs/ Radiology~and current medications noted below. Continue current treatment with the changes noted in the dictated addendum note Assessment: Vital Signs: Vital Signs Date Time Temp Pulse Resp B/P (MAP) Pulse Ox O2 Delivery O2 Flow Rate FiO2 03/01/18 16:04 97.5 79 19 125/77 (93) 95 02/25/18 16:14 Room Air I&O Intake and Output 03/01/18 07:00 Intake Total 1420 ml Balance 1420 ml Intake Oral 1420 ml Labs: Laboratory Tests Test 03/01/18 05:56 White Blood Count 5.9 x10^3/uL (4.0-11.0) Red Blood Count 4.37 x10^6/uL (4.30-5.70) Hemoglobin 13.4 g/dL (13.0-17.5) Hematocrit 39.2 % (39.0-53.0) Mean Corpuscular Volume 90 fL (79-100) Mean Corpuscular Hemoglobin 31 pg (25-35) Mean Corpuscular Hemoglobin Concent 34 g/dL (31-37) Red Cell Distribution Width 14.1 % (11.5-14.5) Platelet Count 326 x10^3/uL (140-400) Neutrophils (%) (Auto) 52 % (31-73) Lymphocytes (%) (Auto) 33 % (24-48) Monocytes (%) (Auto) 10 % (0-9) H Eosinophils (%) (Auto) 6 % (0-3) H Basophils (%) (Auto) 1 % (0-3) Neutrophils # (Auto) 3.0 x10^3uL (1.8-7.7) Lymphocytes # (Auto) 1.9 x10^3/uL (1.0-4.8) Monocytes # (Auto) 0.6 x10^3/uL (0.0-1.1) Eosinophils # (Auto) 0.3 x10^3/uL (0.0-0.7) Basophils # (Auto) 0.0 x10^3/uL (0.0-0.2) Sodium Level 133 mmol/L (136-145) L Potassium Level 4.1 mmol/L (3.5-5.1) Chloride Level 98 mmol/L (98-107) Carbon Dioxide Level 30 mmol/L (21-32) Anion Gap 5 (6-14) L Blood Urea Nitrogen 11 mg/dL (8-26) Creatinine 0.9 mg/dL (0.7-1.3) Estimated GFR (Cockcroft-Gault) 79.6 BUN/Creatinine Ratio 12 (6-20) Glucose Level 90 mg/dL (70-99) Calcium Level 9.1 mg/dL (8.5-10.1) Total Bilirubin 0.6 mg/dL (0.2-1.0) Aspartate Amino Transferase (AST) 20 U/L (15-37) Alanine Aminotransferase (ALT) 20 U/L (16-63) Alkaline Phosphatase 57 U/L (46-116) Total Protein 7.4 g/dL (6.4-8.2) Albumin 3.5 g/dL (3.4-5.0) Albumin/Globulin Ratio 0.9 (1.0-1.7) L Current Medications: Meds: Current Medications Acetaminophen (Tylenol) 650 mg PRN Q6HRS PRN PO PAIN / TEMP Last administered on 02/22/18at 23:46; Start 02/22/18 at 21:00 Multi-Ingredient Ointment (Analgesic [place]) 1 vilma PRN QID PRN TP MUSCLE PAIN; Start 02/22/18 at 21:00 Al Hydroxide/Mg Hydroxide (Mylanta Plus Xs) 15 ml PRN AFTMEALHC PRN PO DYSPEPSIA; Start 02/22/18 at 21:00 Magnesium Hydroxide (Milk Of Magnesia) 2,400 mg PRN QHS PRN PO CONSTIPATION; Start 02/22/18 at 21:00 Donepezil HCl (Aricept) 10 mg QHS PO Last administered on 03/01/18at 19:28; Start 02/22/18 at 22:30 Vitamin D (Vitamin D3) 50,000 unit WEEKLY PO Last administered on 02/23/18at 17: 32; Start 02/23/18 at 15:30 Olanzapine (ZyPREXA ZYDIS) 2.5 mg PRN Q2HR PRN PO PSYCHOSIS Last administered on 02/24/18at 19:51; Start 02/23/18 at 20:30 Trazodone HCl (Desyrel) 50 mg QHS PO Last administered on 03/01/18at 19:27; Start 02/23/18 at 21:00 Trazodone HCl (Desyrel) 50 mg PRN QHS PRN PO IF REPEAT DOSE NEEDED Last administered on 02/23/18at 22:47; Start 02/23/18 at 20:30 Sertraline HCl (Zoloft) 25 mg DAILY PO Last administered on 02/28/18at 08:30; Start 02/26/18 at 09:00; Stop 02/28/18 at 11:00; Status DC Sertraline HCl (Zoloft) 50 mg DAILY PO Last administered on 03/01/18at 08:50; Start 03/01/18 at 09:00; Stop 03/01/18 at 10:01; Status DC Sertraline HCl (Zoloft) 75 mg DAILY PO ; Start 03/02/18 at 09:00 Buspirone HCl (Buspar) 5 mg BID94 PO ; Start 03/02/18 at 09:00 Active Scripts Active Reported Aricept (Donepezil Hcl) 10 Mg Tablet 10 Mg PO HS I have reviewed the current psychotropics carefully including drug interactions. Risk benefit ratio favors no change other than as noted in my dictated progress note. Diagnosis: Problems: (1) Anxiety disorder (2) Dementia in Alzheimer's disease with delusions (3) Dementia in Alzheimer's disease with depression (4) Dementia, vascular, with delusions (5) Dementia, vascular, with depression (6) Impulse control disorder RUCHI WHITT MD Mar 01, 2018 20:46
[2018-03-02 05:45] VITALS: BP 103/56
[2018-03-02] MEDS: busPIRone 5 MG TABLET. PO SCH ×2 (08:19→16:23)
[2018-03-02] MEDS: CHOLECALCIFEROL (VITAMIN D3) 50,000 UNIT CAPSULE PO SCH (08:19)
[2018-03-02] MEDS: SERTRALINE 50 MG TABLET. PO SCH (08:19)
[2018-03-02 15:58] VITALS: BP 136/70
[2018-03-02] MEDS: traZODone 50 MG TABLET. PO SCH (19:27)
[2018-03-02] MEDS: DONEPEZIL HCL 10 MG TABLET PO SCH (19:27)
--- NOTE | 2018-03-02 22:44 | PDOC ---
Exam Note: Willie Note: Please also refer to the separate dictated note~for this date of service dictated separately.~Patient seen individually. Discussed the patient with Nursing staff reviewed the chart.~Reviewed interim history and current functioning. Reviewed vital signs,~Labs/ Radiology~and current medications noted below. Continue current treatment with the changes noted in the dictated addendum note Assessment: Vital Signs: Vital Signs Date Time Temp Pulse Resp B/P (MAP) Pulse Ox O2 Delivery O2 Flow Rate FiO2 03/02/18 15:58 97.4 66 18 136/70 (92) 97 02/25/18 16:14 Room Air I&O Intake and Output 03/02/18 07:00 Intake Total 1440 ml Balance 1440 ml Intake Oral 1440 ml Current Medications: Meds: Current Medications Acetaminophen (Tylenol) 650 mg PRN Q6HRS PRN PO PAIN / TEMP Last administered on 02/22/18at 23:46; Start 02/22/18 at 21:00 Multi-Ingredient Ointment (Analgesic [place]) 1 vilma PRN QID PRN TP MUSCLE PAIN; Start 02/22/18 at 21:00 Al Hydroxide/Mg Hydroxide (Mylanta Plus Xs) 15 ml PRN AFTMEALHC PRN PO DYSPEPSIA; Start 02/22/18 at 21:00 Magnesium Hydroxide (Milk Of Magnesia) 2,400 mg PRN QHS PRN PO CONSTIPATION; Start 02/22/18 at 21:00 Donepezil HCl (Aricept) 10 mg QHS PO Last administered on 03/02/18at 19:27; Start 02/22/18 at 22:30 Vitamin D (Vitamin D3) 50,000 unit WEEKLY PO Last administered on 03/02/18at 08: 19; Start 02/23/18 at 15:30 Olanzapine (ZyPREXA ZYDIS) 2.5 mg PRN Q2HR PRN PO PSYCHOSIS Last administered on 02/24/18at 19:51; Start 02/23/18 at 20:30 Trazodone HCl (Desyrel) 50 mg QHS PO Last administered on 03/02/18at 19:27; Start 02/23/18 at 21:00 Trazodone HCl (Desyrel) 50 mg PRN QHS PRN PO IF REPEAT DOSE NEEDED Last administered on 02/23/18at 22:47; Start 02/23/18 at 20:30 Sertraline HCl (Zoloft) 25 mg DAILY PO Last administered on 02/28/18at 08:30; Start 02/26/18 at 09:00; Stop 02/28/18 at 11:00; Status DC Sertraline HCl (Zoloft) 50 mg DAILY PO Last administered on 03/01/18at 08:50; Start 03/01/18 at 09:00; Stop 03/01/18 at 10:01; Status DC Sertraline HCl (Zoloft) 75 mg DAILY PO Last administered on 03/02/18at 08:19; Start 03/02/18 at 09:00 Buspirone HCl (Buspar) 5 mg BID94 PO Last administered on 03/02/18at 16:23; Start 03/02/18 at 09:00 Active Scripts Active Reported Aricept (Donepezil Hcl) 10 Mg Tablet 10 Mg PO HS I have reviewed the current psychotropics carefully including drug interactions. Risk benefit ratio favors no change other than as noted in my dictated progress note. Diagnosis: Problems: (1) Anxiety disorder (2) Dementia in Alzheimer's disease with delusions (3) Dementia in Alzheimer's disease with depression (4) Dementia, vascular, with delusions (5) Dementia, vascular, with depression (6) Impulse control disorder RUCHI WHITT MD Mar 02, 2018 22:44
[2018-03-03 06:04] VITALS: BP 120/72
[2018-03-03] MEDS: busPIRone 5 MG TABLET. PO SCH ×2 (08:17→16:57)
[2018-03-03] MEDS: SERTRALINE 50 MG TABLET. PO SCH (08:17)
[2018-03-03 16:10] VITALS: BP 124/69
--- NOTE | 2018-03-03 17:51 | PN ---
DATE: 03/01/2018 This late entry, 03/01/2018, covers elements not covered in my initial note. SUBJECTIVE: I met with the patient in the evening. The patient remains confused, quite anxious, restless, constantly looking for the exit, following me around the unit even after I had met with him a couple of times. REVIEW OF SYSTEMS: No CV, , eye, ENT, or pulmonary system symptoms on review. Reliability poor. MENTAL STATUS EXAM: Oriented to himself. Insight, judgment, recent and remote memory, attention, concentration, fund of knowledge poor consistent with his diagnosis mentioned in my initial note. PLAN: Start BuSpar 5 mg 9:00 a.m. and 5:00 p.m. Continue rest unchanged per initial note. Hopefully, the BuSpar will help some of the anxiety and restlessness. MAN Magy WHITT MD DR: SHREYA/selina JOB#: [id number] / [id number]
[2018-03-03] MEDS: DONEPEZIL HCL 10 MG TABLET PO SCH (19:35)
[2018-03-03] MEDS: traZODone 50 MG TABLET. PO SCH (19:35)
--- NOTE | 2018-03-03 20:52 | PDOC ---
Exam Note: Willie Note: Please also refer to the separate dictated note~for this date of service dictated separately.~Patient seen individually. Discussed the patient with Nursing staff reviewed the chart.~Reviewed interim history and current functioning. Reviewed vital signs,~Labs/ Radiology~and current medications noted below. Continue current treatment with the changes noted in the dictated addendum note Assessment: Vital Signs: Vital Signs Date Time Temp Pulse Resp B/P (MAP) Pulse Ox O2 Delivery O2 Flow Rate FiO2 03/03/18 16:10 98.1 65 19 124/69 (87) 95 02/25/18 16:14 Room Air I&O Intake and Output 03/03/18 07:00 Intake Total 1480 ml Balance 1480 ml Intake Oral 1480 ml # Voids 1 Current Medications: Meds: Current Medications Acetaminophen (Tylenol) 650 mg PRN Q6HRS PRN PO PAIN / TEMP Last administered on 02/22/18at 23:46; Start 02/22/18 at 21:00 Multi-Ingredient Ointment (Analgesic [place]) 1 vilma PRN QID PRN TP MUSCLE PAIN; Start 02/22/18 at 21:00 Al Hydroxide/Mg Hydroxide (Mylanta Plus Xs) 15 ml PRN AFTMEALHC PRN PO DYSPEPSIA; Start 02/22/18 at 21:00 Magnesium Hydroxide (Milk Of Magnesia) 2,400 mg PRN QHS PRN PO CONSTIPATION; Start 02/22/18 at 21:00 Donepezil HCl (Aricept) 10 mg QHS PO Last administered on 03/03/18at 19:35; Start 02/22/18 at 22:30 Vitamin D (Vitamin D3) 50,000 unit WEEKLY PO Last administered on 03/02/18at 08: 19; Start 02/23/18 at 15:30 Olanzapine (ZyPREXA ZYDIS) 2.5 mg PRN Q2HR PRN PO PSYCHOSIS Last administered on 02/24/18at 19:51; Start 02/23/18 at 20:30 Trazodone HCl (Desyrel) 50 mg QHS PO Last administered on 03/03/18 19:35; Start 02/23/18 at 21:00 Trazodone HCl (Desyrel) 50 mg PRN QHS PRN PO IF REPEAT DOSE NEEDED Last administered on 02/23/18at 22:47; Start 02/23/18 at 20:30 Sertraline HCl (Zoloft) 25 mg DAILY PO Last administered on 02/28/18at 08:30; Start 02/26/18 at 09:00; Stop 02/28/18 at 11:00; Status DC Sertraline HCl (Zoloft) 50 mg DAILY PO Last administered on 03/01/18at 08:50; Start 03/01/18 at 09:00; Stop 03/01/18 at 10:01; Status DC Sertraline HCl (Zoloft) 75 mg DAILY PO Last administered on 03/03/18at 08:17; Start 03/02/18 at 09:00 Buspirone HCl (Buspar) 5 mg BID94 PO Last administered on 03/03/18at 16:57; Start 03/02/18 at 09:00 Active Scripts Active Reported Aricept (Donepezil Hcl) 10 Mg Tablet 10 Mg PO HS I have reviewed the current psychotropics carefully including drug interactions. Risk benefit ratio favors no change other than as noted in my dictated progress note. Diagnosis: Problems: (1) Anxiety disorder (2) Dementia in Alzheimer's disease with delusions (3) Dementia in Alzheimer's disease with depression (4) Dementia, vascular, with delusions (5) Dementia, vascular, with depression (6) Impulse control disorder RUCHI WHITT MD Mar 03, 2018 20:52
--- NOTE | 2018-03-03 22:40 | PN ---
DATE: 03/02/2018 This is a late entry for 03/02/2018 covers elements not covered in my initial note. SUBJECTIVE: I met with the patient in the evening. He is quite anxious previous night, believed he was in a cruise, looking for his belongings. REVIEW OF SYSTEMS: No CV, , pulmonary, eye, ENT system symptoms on review. Reliability poor. MENTAL STATUS EXAM: Oriented to himself. Insight, judgment, recent memory is impaired. Language function intact. Attention span short. Mood and affect remain somewhat anxious, labile. LABORATORY DATA: Reviewed. IMPRESSION: Unchanged from initial note. PLAN: Start BuSpar 5 mg twice a day. Continue rest unchanged, Zoloft, trazodone, Aricept, Zyprexa p.r.n. MAN Magy WHTIT MD DR: SHREYA/selina JOB#: [id number] / [id number]
--- NOTE | 2018-03-03 23:16 | PN ---
DATE: 03/03/2018 This note covers elements not covered in my initial note of 03/03/2018. SUBJECTIVE: I met with the patient in the evening in his room. He remains somewhat anxious, confused, but compliant with medications. REVIEW OF SYSTEMS: No CV, , pulmonary, eye, ENT system symptoms on review. Reliability poor. MENTAL STATUS EXAM: Oriented to himself. Insight, judgment, recent memory is impaired. Language function intact. Attention span short. Mood and affect remain somewhat anxious, labile. LABORATORY DATA: Reviewed. IMPRESSION: Unchanged from initial note. PLAN: No change from a psychiatric standpoint from initial note. MAN Magy WHITT MD DR: SHREYA/selina JOB#: [id number] / [id number]
[2018-03-04 05:53] VITALS: BP 123/66
[2018-03-04] MEDS: busPIRone 5 MG TABLET. PO SCH ×2 (08:18→16:51)
[2018-03-04] MEDS: SERTRALINE 50 MG TABLET. PO SCH (08:18)
[2018-03-04 16:22] VITALS: BP 125/51
[2018-03-04] MEDS: DONEPEZIL HCL 10 MG TABLET PO SCH (19:40)
[2018-03-04] MEDS: traZODone 50 MG TABLET. PO SCH (19:40)
--- NOTE | 2018-03-04 20:51 | PDOC ---
Exam Note: Willie Note: Please also refer to the separate dictated note~for this date of service dictated separately.~Patient seen individually. Discussed the patient with Nursing staff reviewed the chart.~Reviewed interim history and current functioning. Reviewed vital signs,~Labs/ Radiology~and current medications noted below. Continue current treatment with the changes noted in the dictated addendum note Assessment: Vital Signs: Vital Signs Date Time Temp Pulse Resp B/P (MAP) Pulse Ox O2 Delivery O2 Flow Rate FiO2 03/04/18 16:22 97.8 73 19 125/51 (75) 96 Room Air I&O Intake and Output 03/04/18 07:01 Intake Total 960 ml Balance 960 ml Intake Oral 960 ml Current Medications: Meds: Current Medications Acetaminophen (Tylenol) 650 mg PRN Q6HRS PRN PO PAIN / TEMP Last administered on 02/22/18at 23:46; Start 02/22/18 at 21:00 Multi-Ingredient Ointment (Analgesic [place]) 1 vilma PRN QID PRN TP MUSCLE PAIN; Start 02/22/18 at 21:00 Al Hydroxide/Mg Hydroxide (Mylanta Plus Xs) 15 ml PRN AFTMEALHC PRN PO DYSPEPSIA; Start 02/22/18 at 21:00 Magnesium Hydroxide (Milk Of Magnesia) 2,400 mg PRN QHS PRN PO CONSTIPATION; Start 02/22/18 at 21:00 Donepezil HCl (Aricept) 10 mg QHS PO Last administered on 03/04/18at 19:40; Start 02/22/18 at 22:30 Vitamin D (Vitamin D3) 50,000 unit WEEKLY PO Last administered on 03/02/18at 08: 19; Start 02/23/18 at 15:30 Olanzapine (ZyPREXA ZYDIS) 2.5 mg PRN Q2HR PRN PO PSYCHOSIS Last administered on 02/24/18 19:51; Start 02/23/18 at 20:30 Trazodone HCl (Desyrel) 50 mg QHS PO Last administered on 03/04/18 19:40; Start 02/23/18 at 21:00 Trazodone HCl (Desyrel) 50 mg PRN QHS PRN PO IF REPEAT DOSE NEEDED Last administered on 02/23/18at 22:47; Start 02/23/18 at 20:30 Sertraline HCl (Zoloft) 25 mg DAILY PO Last administered on 02/28/18at 08:30; Start 02/26/18 at 09:00; Stop 02/28/18 at 11:00; Status DC Sertraline HCl (Zoloft) 50 mg DAILY PO Last administered on 03/01/18at 08:50; Start 03/01/18 at 09:00; Stop 03/01/18 at 10:01; Status DC Sertraline HCl (Zoloft) 75 mg DAILY PO Last administered on 03/04/18at 08:18; Start 03/02/18 at 09:00 Buspirone HCl (Buspar) 5 mg BID94 PO Last administered on 03/04/18at 16:51; Start 03/02/18 at 09:00 Active Scripts Active Reported Aricept (Donepezil Hcl) 10 Mg Tablet 10 Mg PO HS I have reviewed the current psychotropics carefully including drug interactions. Risk benefit ratio favors no change other than as noted in my dictated progress note. Diagnosis: Problems: (1) Anxiety disorder (2) Dementia in Alzheimer's disease with delusions (3) Dementia in Alzheimer's disease with depression (4) Dementia, vascular, with delusions (5) Dementia, vascular, with depression (6) Impulse control disorder RUCHI WHITT MD Mar 04, 2018 20:51
[2018-03-04] MEDS ORDERED: CHOL500021 PO (23:53)
[2018-03-04] MEDS ORDERED: ACET325T9 PO (23:53)
[2018-03-04] MEDS ORDERED: MAGN400O7 PO (23:54)
[2018-03-04] MEDS ORDERED: MAG30ORA2 PO (23:54)
[2018-03-04] MEDS ORDERED: OLAN5TAB5 PO (23:55)
[2018-03-04] MEDS ORDERED: SERT50TA PO (23:59)
[2018-03-05] MEDS ORDERED: BUSP5TAB PO
[2018-03-05] MEDS ORDERED: TRAZ50TA15 PO ×2 (00:01)
[2018-03-05] MEDS ORDERED: METH29OI TP (00:02)
[2018-03-05 07:23] VITALS: BP 112/66
[2018-03-05] MEDS: busPIRone 5 MG TABLET. PO SCH (08:49)
[2018-03-05] MEDS: SERTRALINE 50 MG TABLET. PO SCH (08:49)
[2018-03-05] MEDS: ACETAMINOPHEN 325 MG TABLET PO PRN (08:59)
--- NOTE | 2018-03-05 18:35 | PDOC ---
Exam Note: Willie Note: Please also refer to the separate dictated note~for this date of service dictated separately.~Patient seen individually. Discussed the patient with Nursing staff reviewed the chart.~Reviewed interim history and current functioning. Reviewed vital signs,~Labs/ Radiology~and current medications noted below. Continue current treatment with the changes noted in the dictated addendum note Assessment: Vital Signs: Vital Signs Date Time Temp Pulse Resp B/P (MAP) Pulse Ox O2 Delivery O2 Flow Rate FiO2 03/05/18 07:23 98.4 63 18 112/66 (81) 96 Room Air I&O Intake and Output 03/05/18 07:01 Intake Total 600 ml Balance 600 ml Intake Oral 600 ml Current Medications: Meds: Current Medications Acetaminophen (Tylenol) 650 mg PRN Q6HRS PRN PO PAIN / TEMP Last administered on 03/05/18at 08:59; Start 02/22/18 at 21:00; Stop 03/05/18 at 11:18; Status DC Multi-Ingredient Ointment (Analgesic Independence) 1 harris PRN QID PRN TP MUSCLE PAIN; Start 02/22/18 at 21:00; Stop 03/05/18 at 11:18; Status DC Al Hydroxide/Mg Hydroxide (Mylanta Plus Xs) 15 ml PRN AFTMEALHC PRN PO DYSPEPSIA; Start 02/22/18 at 21:00; Stop 03/05/18 at 11:18; Status DC Magnesium Hydroxide (Milk Of Magnesia) 2,400 mg PRN QHS PRN PO CONSTIPATION; Start 02/22/18 at 21:00; Stop 03/05/18 at 11:18; Status DC Donepezil HCl (Aricept) 10 mg QHS PO Last administered on 03/04/18at 19:40; Start 02/22/18 at 22:30; Stop 03/05/18 at 11:18; Status DC Vitamin D (Vitamin D3) 50,000 unit WEEKLY PO Last administered on 03/02/18at 08: 19; Start 02/23/18 at 15:30; Stop 03/05/18 at 11:18; Status DC Olanzapine (ZyPREXA ZYDIS) 2.5 mg PRN Q2HR PRN PO PSYCHOSIS Last administered on 02/24/18at 19:51; Start 02/23/18 at 20:30; Stop 03/05/18 at 11:18; Status DC Trazodone HCl (Desyrel) 50 mg QHS PO Last administered on 03/04/18at 19:40; Start 02/23/18 at 21:00; Stop 03/05/18 at 11:18; Status DC Trazodone HCl (Desyrel) 50 mg PRN QHS PRN PO IF REPEAT DOSE NEEDED Last administered on 02/23/18at 22:47; Start 02/23/18 at 20:30; Stop 03/05/18 at 11:18 ; Status DC Sertraline HCl (Zoloft) 25 mg DAILY PO Last administered on 02/28/18at 08:30; Start 02/26/18 at 09:00; Stop 02/28/18 at 11:00; Status DC Sertraline HCl (Zoloft) 50 mg DAILY PO Last administered on 03/01/18at 08:50; Start 03/01/18 at 09:00; Stop 03/01/18 at 10:01; Status DC Sertraline HCl (Zoloft) 75 mg DAILY PO Last administered on 03/05/18at 08:49; Start 03/02/18 at 09:00; Stop 03/05/18 at 11:19; Status DC Buspirone HCl (Buspar) 5 mg BID94 PO Last administered on 03/05/18at 08:49; Start 03/02/18 at 09:00; Stop 03/05/18 at 11:19; Status DC Active Scripts Active Reported Analgesic Independence (Methyl Salicylate/Menthol) 28 Gm Oint...g. 1 Harris TP PRN QID PRN Trazodone Hcl 50 Mg Tablet 50 Mg PO PRN QHS PRN Trazodone Hcl 50 Mg Tablet 50 Mg PO QHS Buspirone Hcl 5 Mg Tablet 5 Mg PO BID94 Zoloft (Sertraline Hcl) 50 Mg Tablet 75 Mg PO DAILY Zyprexa Zydis (Olanzapine) 5 Mg Tab.rapdis 2.5 Mg PO PRN Q2HR PRN Milk Of Magnesia (Magnesium Hydroxide) 400 Mg/5 Ml Oral.susp 2,400 Mg PO PRN QHS PRN Mag-Al Plus Xs Suspension (Mag Hydrox/Al Hydrox/Simeth) 30 Ml Oral.susp 15 Ml PO PRN AFTMEALHC PRN Tylenol (Acetaminophen) 325 Mg Tablet 650 Mg PO PRN Q6HRS PRN D3-50 (Cholecalciferol (Vitamin D3)) 50,000 Unit Capsule 50,000 Unit PO WEEKLY Aricept (Donepezil Hcl) 10 Mg Tablet 10 Mg PO HS I have reviewed the current psychotropics carefully including drug interactions. Risk benefit ratio favors no change other than as noted in my dictated progress note. Diagnosis: Problems: (1) Impulse control disorder (2) Dementia, vascular, with depression (3) Dementia, vascular, with delusions (4) Dementia in Alzheimer's disease with depression (5) Dementia in Alzheimer's disease with delusions (6) Anxiety disorder RUCHI WHITT MD Mar 05, 2018 18:35
--- NOTE | 2018-03-05 19:51 | PN ---
DATE: 03/04/2018 This is a late entry 03/04/2018, covers elements not covered in my initial note. SUBJECTIVE: I met with the patient in the evening. The patient is confused, looking for his , looking for the exit door, but less anxious than before since we started the BuSpar. REVIEW OF SYSTEMS: No CV, , pulmonary, eye, ENT system symptoms on review. Reliability poor. MENTAL STATUS EXAM: Oriented to himself. Insight, judgment, recent and remote memory, attention, concentration, fund of knowledge poor, consistent with his diagnosis. I met with him on 2 or 3 occasions evening of 03/04/2018, as he was repeatedly coming back to me, wanting reassurance. LABORATORY DATA: Reviewed. IMPRESSION: Unchanged from initial note. PLAN: Continue current psychotropics. Possible transition to outpatient treatment starting 03/05/2018. MAN Magy WHITT MD DR: SHREYA/selina JOB#: [id number] / [id number]
--- NOTE | 2018-03-06 12:51 | DS ---
DATE OF DISCHARGE: 03/05/2018 DISCHARGE SUMMARY AND PSYCHIATRIC PROGRESS NOTE This is a late entry for 03/05/2018 and covers elements not covered in my initial note of 03/05/2018. REASON FOR ADMISSION: Please refer to the admission history for details. Briefly, the patient is an 87-year-old male who is referred to us from [facility] where he presented with his family including his on account of increased agitation, confusion, psychotic symptoms. All of this emanated soon after they bought her new home. He did not remember buying the home, refused her let the movers take any belongings. The police had to be called. The patient was taken to the Emergency Room. He had been walking out of the home, getting lost. Behaviors were deemed dangerous, out of control as an outpatient and referred for inpatient psychiatric stabilization. SIGNIFICANT FINDINGS AND CLINICAL COURSE: Following admission, the patient was seen daily individually from a psychiatric standpoint by myself, followed medically per Dr. Burr/Dr. Plascencia/ ____. He remained confused, anxious, restless, at times labile, constantly looking for the exit door, unable to sit still. Adjustments were made in his psychotropics. He seemed to respond to a combination of BuSpar 5 mg twice a day, Aricept 10 mg at bedtime, Zyprexa p.r.n., trazodone 50 mg at bedtime, may repeat x 1 for insomnia, Zoloft 75 mg a day and gradually increment dosages. Gradually, his mood appeared to improve. He was still confused, but anxiety was better. He was not exit seeking. No suicidal or homicidal ideation at discharge. CONDITION AT DISCHARGE: Improved. MENTAL STATUS EXAM: At discharge, the patient is oriented to himself. Insight, judgment, recent and remote memory, attention, concentration, fund of knowledge poor, consistent with his diagnosis. FINAL DIAGNOSES: Major neurocognitive disorder, Alzheimer, vascular with delusion, depression, behavioral disturbance; anxiety disorder, unspecified; impulse control disorder, unspecified. Rest unchanged from admission. DISCHARGE MEDICATIONS: Please refer to the EMRAD. DISCHARGE INSTRUCTIONS: Outpatient psychiatric and medical followup with his primary care physician. Time for discharge day management greater than 30 minutes. RUCHI WHITT MD DR: SHREYA/selina JOB#: [id number] / [id number]
== END 2018-03-05 11:10 | DRG 57 ==
LOC: GEROPSY 20:40
PROVIDERS: ADMIT Psychiatry & Neurology Psychiatry; ATTEND Psychiatry & Neurology Psychiatry
DX: G30.9 Alzheimer's disease, unspecified (principal); F01.51 Vascular dementia, unspecified severity, with behavioral disturbance; F02.81 Dementia in other diseases classified elsewhere, unspecified severity, with behavioral disturbance; E03.9 Hypothyroidism, unspecified; E53.8 Deficiency of other specified B group vitamins; F32.9 Major depressive disorder, single episode, unspecified; F41.9 Anxiety disorder, unspecified; F63.9 Impulse disorder, unspecified; G47.00 Insomnia, unspecified; F29 Unspecified psychosis not due to a substance or known physiological condition; Z79.899 Other long term (current) drug therapy; Z87.891 Personal history of nicotine dependence; Z88.0 Allergy status to penicillin; Z88.2 Allergy status to sulfonamides; Z91.83 Wandering in diseases classified elsewhere
CPT/HCPCS: 36415; 70450; 80053; 80061; 81001; 82306; 82607; 83036; 83540; 83550; 83735; 84436; 84443; 84480; 85025; 86592